=== PATIENT | female | born 1970 ===

== ENCOUNTER 2022-10-16 15:10 | Day surgery (SDC) | payer BC ==
[2022-10-16] MEDS ORDERED: fentaNYL 50 MCG/ML SDV IVPUSH PRN (15:24)
[2022-10-16] MEDS ORDERED: Naloxone 0.4 MG/ML SDV IVPUSH PRN (15:24)
[2022-10-16] MEDS ORDERED: Morphine 2 MG/ML SYRINGE IVPUSH PRN (15:24)
[2022-10-16] MEDS ORDERED: HYDROmorphone 1 MG/ML Syringe IVPUSH PRN ×2 (15:24→17:20)
[2022-10-16] MEDS ORDERED: Ondansetron 4 MG/2 ML SDV IVPUSH PRN ×2 (15:24→17:20)
[2022-10-16] MEDS ORDERED: Metoclopramide 10 MG/2 ML SDV IVPUSH PRN (15:24)
[2022-10-16] MEDS ORDERED: Albuterol 0.083% 2.5 MG/3 ML Neb Soln NEB PRN (15:24)
[2022-10-16] MEDS ORDERED: fentaNYL 100 MCG/2 ML SDV ONE (15:40)
[2022-10-16] MEDS ORDERED: Propofol 200 MG/20 ML SDV ONE (15:40)
[2022-10-16] MEDS ORDERED: Dexmedetomidine 200 MCG/2 ML SDV ONE (15:40)
[2022-10-16] MEDS ORDERED: Rocuronium Bromide 50 MG/5 ML Syringe ONE (15:41)
[2022-10-16] MEDS ORDERED: Bupivacaine 0.25% 10 ML SDV ONE (15:42)
[2022-10-16] MEDS ORDERED: Lactated Ringers 1,000 ML IV SCH (15:45)
[2022-10-16] MEDS ORDERED: Bupivacaine 0.5% 30 ML SDV ONE (15:48)
[2022-10-16] MEDS ORDERED: Succinylcholine/Sod PF 100 MG/5 ML SYRINGE IV ONE (15:56)
[2022-10-16] MEDS ORDERED: Sodium Chloride 0.9% 2.5 ML Syringe FLUSH PRN (15:59)
[2022-10-16] MEDS ORDERED: cefOXitin 2 GM in Premix Bag 1 BAG IV ONE ×2 (15:59→16:30)
[2022-10-16] MEDS ORDERED: Sodium Chloride 0.9% 10 ML Syringe FLUSH PRN (15:59)
[2022-10-16] MEDS ORDERED: Sodium Chloride 0.9% 20 ML SDV IV PRN (15:59)
[2022-10-16] MEDS ORDERED: cefOXitin 1 GM Vial ONE (16:14)
[2022-10-16] MEDS ORDERED: Phenylephrine 1% 10 MG/ML SDV ONE (16:17)
[2022-10-16] MEDS ORDERED: Magnesium Sulfate (4.06 MEQ/ML) 5 GM/10 ML SDV ONE (16:19)
[2022-10-16] MEDS ORDERED: Dexamethasone 4 MG/ML 5 ML MDV ONE (16:28)
[2022-10-16] MEDS ORDERED: Ketorolac 30 MG/ML SDV ONE (16:45)
[2022-10-16] MEDS ORDERED: Sugammadex Sodium 200 MG/2 ML VIAL ONE (16:45)
[2022-10-16] MEDS ORDERED: Ondansetron 4 MG/2 ML SDV ONE (16:45)
[2022-10-16] MEDS ORDERED: Acetaminophen/oxyCODONE 325-5 MG Tab PO PRN (17:20)
[2022-10-16] MEDS ORDERED: Ketorolac 30 MG/ML SDV IM SCH (17:30)
[2022-10-16] MEDS ORDERED: Nicotine Polacrilex 2 MG Gum CHEW PRN (21:02)
[2022-10-16] MEDS: LORazepam 2 MG/ML SDV IVPUSH ONE ×2 (22:27→23:12)
[2022-10-16] MEDS: Ketorolac 30 MG/ML SDV IVPUSH SCH (23:13)
[2022-10-17] MEDS: Ketorolac 30 MG/ML SDV IVPUSH SCH (05:46)
[2022-10-17] MEDS ORDERED: Bisacodyl 5 MG Tab PO SCH (09:00)
[2022-10-17] MEDS ORDERED: Nicotine Polacrilex 4 MG Gum CHEW PRN (12:20)
== END 2022-10-17 11:30 | disposition home or self-care (01) ==
LOC: MW.SDS 15:10 → MW.MS 15:59 → MW.SDS 10-17 11:30
PROVIDERS: ATTEND Surgery
DX: K35.80 Unspecified acute appendicitis (principal); E11.9 Type 2 diabetes mellitus without complications; F17.210 Nicotine dependence, cigarettes, uncomplicated; Z98.890 Other specified postprocedural states; Z90.710 Acquired absence of both cervix and uterus; Z79.899 Other long term (current) drug therapy
CPT/HCPCS: 44970; A9270; J0131; J0330; J0694; J1100; J1885; J2060; J2370; J2704; J3010; J3475; J3490; J7030; J7120; 00840; 64486; J2405